=== PATIENT | female | born 1960 | race African-American/Black ===

== ENCOUNTER → 2024-11-27 | Outpatient (REF) | payer OTHER ==
[~2024-11-27] MED LIST: FAMOTIDINE20 MG PO; FEROSUL325 MG PO; FERREX 150150 MG; METFORMIN HCL500 MG PO; MONTELUKAST SOD10 MG PO; PRAVASTATIN SOD20 MG; TRIAMTERENE-HCTZ1 EA PO
== END ==
LOC: DX 08:25
PROVIDERS: ATTEND Nurse Practitioner
DX: D50.8 Other iron deficiency anemias (principal)
CPT/HCPCS: 74250